=== PATIENT | male | born 1985 | race Two or more races ===

== ENCOUNTER 2017-03-20 18:18 | Emergency (ER) | payer MEDICAID ==
[2017-03-20 18:36] VITALS: TEMP 99.1; O2SAT 96
--- NOTE | 2017-03-20 18:42 | EDPHY ---
H & P Time Seen by Provider: 03/20/17 18:37 HPI/ROS: CHIEF COMPLAINT: Right testicular pain and swelling HISTORY OF PRESENT ILLNESS: Patient is a 32-year-old man with a history of narcotic abuse who comes to the emergency department complaining of right testicular pain and swelling. He states that it is been hurting for about a month but it began swelling 2 days ago. No discharge. No fever. No erythema. It is tender to palpation. No dysuria. No difficulty defecating. No trauma. No hernias. No history of surgeries. He denies risk for STD as does his . REVIEW OF SYSTEMS: Constitutional: denies: chills, fever, recent illness, recent injury EENTM: denies: blurred vision, double vision, nose congestion Respiratory: denies: cough, shortness of breath Cardiac: denies: chest pain, irregular heart rate, lightheadedness, palpitations Gastrointestinal/Abdominal: denies: abdominal pain, diarrhea, nausea, vomiting, blood streaked stools Genitourinary: See HPI Musculoskeletal: denies: joint pain, muscle pain Skin: denies: lesions, rash, jaundice, bruising Neurological: denies: headache, numbness, paresthesia, tingling, dizziness, weakness Hematologic/Lymphatic: denies: blood clots, easy bleeding, easy bruising Immunologic/allergic: denies: HIV/AIDS, transplant EXAM: GENERAL: Well-appearing, well-nourished and in no acute distress. HEAD: Atraumatic, normocephalic. EYES: Pupils equal round and reactive to light, extraocular movements intact, sclera anicteric, conjunctiva are normal. ENT: TMs normal, nares patent, oropharynx clear without exudates. Moist mucous membranes. NECK: Normal range of motion, supple without lymphadenopathy or JVD. LUNGS: Breath sounds clear to auscultation bilaterally and equal. No wheezes rales or rhonchi. HEART: Regular rate and rhythm without murmurs, rubs or gallops. ABDOMEN: Soft, nontender, normoactive bowel sounds. No guarding, no rebound. No masses appreciated. : Patient has right epididymis feels as though there is a cyst. It is tender. The right testicle is also tender. No erythema. No discharge. Negative cremasteric reflex on either side. BACK: No CVA tenderness, no spinal tenderness, step-offs or deformities EXTREMITIES: Normal range of motion, no pitting or edema. No clubbing or cyanosis. NEUROLOGICAL: Cranial nerves II through XII grossly intact. Normal speech, normal gait. 5/5 strength, normal movement in all extremities, normal sensation PSYCH: Normal mood, normal affect. SKIN: Warm, dry, normal turgor, no visible rashes or lesions. Source: Patient Exam Limitations: No limitations - Personal History Current Tetanus Diphtheria and Acellular Pertussis (TDAP): Yes - Medical/Surgical History Hx Asthma: No Hx Chronic Respiratory Disease: No Hx Diabetes: No Hx Cardiac Disease: No Hx Renal Disease: No Hx Cirrhosis: No Hx Alcoholism: No Hx HIV/AIDS: No Hx Splenectomy or Spleen Trauma: No Other PMH: uses 2-3 grams of heroin a day - Family History Significant Family History: No pertinent family hx - Social History Smoking Status: Current some day smoker Alcohol Use: Occasionally Drug Use: Heroin Constitutional: Initial Vital Signs Temperature (C) 37.3 C 03/20/17 18:28 Heart Rate 120 H 03/20/17 18:28 Respiratory Rate 18 03/20/17 18:28 Blood Pressure 136/102 H 03/20/17 18:28 O2 Sat (%) 96 03/20/17 18:28 O2 Delivery Mode Room Air Allergies/Adverse Reactions: Penicillins Allergy (Intermediate, Verified 03/20/17 18:31) Home Medications: Medication Instructions Recorded NO HOME MEDICATIONS 09/03/10 levOFLOXACIN [levAQUIN (*)] 500 mg PO BID #20 tab 03/20/17 Medical Decision Making - Diagnostics Imaging Results: Imaging Impressions Testicular Ultrasound 03/20/17 18:34 Impression: 1. Right epididymitis and orchitis. 2. No testicular torsion. 3. Bilateral testicular microlithiasis without testicular masses. 4. Small right hydrocele. Findings and recommendations discussed with Emergency Department physician, GAYE RIOS at 19:10 hour, 03/20/2017. Final report concurs with initial preliminary interpretation. ED Course/Re-evaluation: 7:10 p.m. we discussed the ultrasound results. I will start the patient on Levaquin. He and his both adamantly denies any risk for STD. We discussed expected course and follow-up and indications for returning. He understands and declines any further workup or testing at this time. Differential Diagnosis: Partial list of the Differential diagnosis considered include but were not limited to; epididymitis, epididymal cyst, orchitis and although unlikely based on the history and physical exam, I also considered torsion, hernia. I discussed these differential diagnoses and the plan with the patient as well as the usual and expected course. The patient understands that the diagnosis is provisional and that in medicine we are not always correct and that further workup is often warranted. Usual and customary warnings were given. All of the patient's questions were answered. The patient was instructed to return to the emergency department should the symptoms at all worsen or return, otherwise to followup with the physician as we discussed. - Data Points Medications Given: Discontinued Medications Levofloxacin (Levaquin) 750 mg PO EDNOW ONE PRN Reason: Protocol Stop: 03/20/17 19:12 Last Admin: 03/20/17 19:33 Dose: 750 mg Departure - Departure Disposition: Home, Routine, Self-Care Clinical Impression: Epididymitis, right, Epididymal cyst, Orchitis of right testicle Condition: Fair Instructions: Epididymitis (ED) Referrals: NATE CANALES,. [Primary Care Provider] - As per Instructions Prescriptions: levOFLOXACIN [levAQUIN (*)] 500 mg PO BID #20 tab
[2017-03-20 19:36] VITALS: BP 123/82; PULSE 95; RESP 16
== END 2017-03-20 19:36 | disposition home or self-care (01) ==
LOC: CED 18:18
DX: N50.3 Cyst of epididymis (principal); N45.1 Epididymitis; N45.2 Orchitis; F17.200 Nicotine dependence, unspecified, uncomplicated
CPT/HCPCS: 76870-PO

== ENCOUNTER 2017-08-09 19:27 | Emergency (ER) | payer MEDICAID ==
--- NOTE | 2017-08-09 19:32 | EDPHY ---
H & P Time Seen by Provider: 08/09/17 19:32 HPI/ROS: HPI CHIEF COMPLAINT: Rash, pruritus HISTORY OF PRESENT ILLNESS: Patient otherwise healthy 32-year-old male, presents emergency room with a erythematous urticaria type rash mainly around his chest and on the left flank. Patient reports that he has been taking amoxicillin for recent dental infection. He has been on for week. He stops yesterday as he developed a rash. The rash went away yesterday. However reoccurred around 4 o'clock today. It is itchy. Decided come the emergency room for further evaluation. He denies any trouble breathing. Denies trouble swallowing. Denies chest pain or shortness of breath. Denies GI upset. The rash is mainly erythematous and some raised lesion consistent with urticaria down the left flank and chest. No stridor. No trouble breathing. Started 3 hr ago. Has not really progressed. Patient cannot think of any new exposure except antibiotic that he has been on for week. He denies new detergents or soaps, denies new work environment. Denies other new medications Past Medical History: Multiple dental caries, multiple dental infections Past Surgical History: Denies recent surgery. Social History: Denies daily use drugs alcohol tobacco. Family History: Noncontributory ROS REVIEW OF SYSTEMS: A comprehensive 10 point review of systems is otherwise negative aside from elements mentioned in the history of present illness. 3 days. Exam Constitutional appears well nontoxic no acute distress, triage nursing summary reviewed, vital signs reviewed, awake/alert. Eyes normal conjunctivae and sclera, EOMI, PERRLA. HENT normal inspection, atraumatic, moist mucus membranes, no epistaxis, neck supple/ no meningismus, no raccoon eyes. Respiratory no stridor. No airway involvement. clear to auscultation bilaterally, normal breath sounds, no respiratory distress, no wheezing. Cardiovascular rate normal, regular rhythm, no murmur, no edema, distal pulses normal. Gastrointestinal soft, non-tender, no rebound, no guarding, normal bowel sounds, no distension, no pulsatile mass. Genitourinary no CVA tenderness. Musculoskeletal no midline vertebral tenderness, full range of motion, no calf swelling, no tenderness of extremities, no meningismus, good pulses, neurovascularly intact. Skin urticaria present and erythema across the chest and left flank. Spares extremities. Neurologic awake, alert and oriented x 3, AAOx3, moves all 4 extremities equally, motor intact, sensory intact, CN II-XII intact, normal cerebellar, normal vision, normal speech. Psychiatric normal mood/affect. Heme/Lymph/Immune no lymphadenopathy. Differential Diagnosis: Includes but is not limited to in a particular order allergic reaction, urticaria, anaphylaxis, anaphylactic shock Medical Decision Making: Here in emergency room this patient appears very well no respiratory GI symptoms. Has urticaria in his chest and left flank. Patient declined IV here. Plan for this patient will be oral prednisone, oral Pepcid, oral Benadryl on close observation re-evaluation Re-evaluation: 2030: Patient re-evaluate at this time. He does have some erythema possible early urticaria down his arms now. However no further progression of his symptoms. No airway involvement. The previous urticaria seems to be developed stable. Given that he has it on his arms now will proceed with an IV establishment, IV Benadryl, IV Solu-Medrol and IV Pepcid. At this time I do not feel that he needs epinephrine. This progression gets worse will give a IM epinephrine. Monitor closely here in emergency room in observation. 2228: Patient re-evaluated resting comfortably. He is requesting discharge. He is eager to be discharged. He has urticaria and rash is completely resolved. He has no further symptoms. There is no rash on exam after medications. He has no respiratory symptoms. We discussed return precautions. He has been here observe the emergency room for over 3 hr. He has done very well. Hemodynamically stable with no progression of his allergic reaction. Discussed return precautions with him. He understands return emergency room if develops any worsening signs or symptoms of allergic reaction trouble breathing , trouble swallowing, vomiting worsening rash. Prescription for prednisone, Pepcid, Benadryl provided for the next 3 days. Source: Patient, Family - Medical/Surgical History Hx Asthma: No Hx Chronic Respiratory Disease: No Hx Diabetes: No Hx Cardiac Disease: No Hx Renal Disease: No Hx Cirrhosis: No Hx Alcoholism: No Hx HIV/AIDS: No Hx Splenectomy or Spleen Trauma: No Other PMH: uses 2-3 grams of heroin a day - Social History Smoking Status: Current some day smoker Constitutional: Initial Vital Signs Temperature (C) 37.2 C 08/09/17 19:39 Heart Rate 70 08/09/17 19:39 Respiratory Rate 16 08/09/17 19:39 Blood Pressure 127/104 H 08/09/17 19:39 O2 Sat (%) 97 08/09/17 19:39 O2 Delivery Mode Room Air Allergies/Adverse Reactions: Penicillins Allergy (Intermediate, Verified 08/09/17 19:38) Home Medications: Medication Instructions Recorded Famotidine [Pepcid 20 MG (*)] 20 mg PO BID #6 tab 08/09/17 diphenhydrAMINE [Benadryl 25 MG 25 mg PO BID #6 tab 08/09/17 (*)] predniSONE 60 mg PO DAILY #9 tab 08/09/17 Medical Decision Making - Data Points Medications Given: Discontinued Medications Diphenhydramine HCl (Benadryl) 50 mg PO EDNOW ONE Stop: 08/09/17 19:36 Last Admin: 08/09/17 19:48 Dose: 50 mg Diphenhydramine HCl (Benadryl Injection) 25 mg IVP EDNOW ONE Stop: 08/09/17 20:31 Last Admin: 08/09/17 20:45 Dose: 25 mg Famotidine (Pepcid) 20 mg PO EDNOW ONE Stop: 08/09/17 19:37 Last Admin: 08/09/17 19:48 Dose: 20 mg Famotidine (Pepcid) 20 mg IVP EDNOW ONE Stop: 08/09/17 20:31 Last Admin: 08/09/17 20:45 Dose: 20 mg Sodium Chloride (Ns) 1,000 mls @ 0 mls/hr IV ONCE ONE PRN Reason: Wide Open Stop: 08/09/17 20:31 Last Admin: 08/09/17 20:45 Dose: 1,000 mls Methylprednisolone Sodium Succinate (Solu-Medrol) 125 mg IVP EDNOW ONE Stop: 08/09/17 20:31 Last Admin: 08/09/17 20:45 Dose: 125 mg Prednisone (Prednisone) 60 mg PO EDNOW ONE Stop: 08/09/17 19:36 Last Admin: 08/09/17 19:48 Dose: 60 mg Departure - Departure Disposition: Home, Routine, Self-Care Clinical Impression: Allergic reaction Qualifiers: Encounter type: initial encounter Qualified Code(s): T78.40XA - Allergy, unspecified, initial encounter Condition: Good Instructions: Urticaria (ED), Anaphylaxis (ED), Allergies (ED) Additional Instructions: 1. Take prednisone, Benadryl, Pepcid for the next 3 days. 2. Return emergency room if you have worsening signs of allergic reaction. Referrals: NONE *PRIMARY CARE P,. [Primary Care Provider] - As per Instructions Prescriptions: diphenhydrAMINE [Benadryl 25 MG (*)] 25 mg PO BID #6 tab Famotidine [Pepcid 20 MG (*)] 20 mg PO BID #6 tab predniSONE 60 mg PO DAILY #9 tab
[2017-08-09] MEDS ORDERED: predniSONE 20 MG TAB PO ONE (19:35)
[2017-08-09] MEDS ORDERED: diphenhydrAMINE 25 MG CAP PO ONE (19:35)
[2017-08-09] MEDS ORDERED: FAMOTIDINE 20 MG TAB PO ONE (19:36)
[2017-08-09] MEDS ORDERED: FAMOTIDINE 20 MG/2 ML SDV IVP ONE (20:30)
[2017-08-09] MEDS ORDERED: methylPREDNISolone SOD SUCC 125 MG/2 ML VIAL IVP ONE (20:30)
[2017-08-09] MEDS ORDERED: NS 1,000 ML IV ONE (20:30)
[2017-08-09 22:07] VITALS: BP 111/75
== END 2017-08-09 22:31 | disposition home or self-care (01) ==
LOC: CED 19:27
DX: R21 Rash and other nonspecific skin eruption (principal); T36.0X5A Adverse effect of penicillins, initial encounter; F17.200 Nicotine dependence, unspecified, uncomplicated
CPT/HCPCS: 96374; J1200; J2930; J7512

== ENCOUNTER 2018-07-13 18:25 | Emergency (ER) | payer MEDICAID ==
[2018-07-13] MEDS ORDERED: ACETAMINOPHEN 500 MG TAB PO ONE (18:41)
--- NOTE | 2018-07-13 18:49 | EDPHY ---
H & P Stated Complaint: cough, body aches, feverish since last night Time Seen by Provider: 07/13/18 18:45 HPI/ROS: CHIEF COMPLAINT: Sore throat, runny nose, dry cough, body aches HISTORY OF PRESENT ILLNESS: The patient is a 33-year-old man who comes to the emergency department flu-like symptoms. They began last night. He states that several people at work have been calling in sick recently with similar symptoms. No history of significant cardiac or pulmonary disease. He did not receive the flu vaccine this year. Severity: Moderate Modifying factors: Moderate improvement with ibuprofen at home REVIEW OF SYSTEMS: Constitutional: See HPI EENTM: See HPI Respiratory: See HPI, notice of breath Cardiac: denies: chest pain, irregular heart rate, lightheadedness, palpitations Gastrointestinal/Abdominal: denies: abdominal pain, diarrhea, nausea, vomiting, blood streaked stools Genitourinary: denies: dysuria, frequency, hematuria, pain Musculoskeletal: denies: joint pain, muscle pain Skin: denies: lesions, rash, jaundice, bruising Neurological: denies: headache, numbness, paresthesia, tingling, dizziness, weakness Hematologic/Lymphatic: denies: blood clots, easy bleeding, easy bruising Immunologic/allergic: denies: HIV/AIDS, transplant 10 systems reviewed and negative except as noted EXAM: GENERAL: Well-appearing, well-nourished and in no acute distress. HEAD: Atraumatic, normocephalic. EYES: Pupils equal round and reactive to light, extraocular movements intact, sclera anicteric, conjunctiva are normal. ENT: TMs normal, nares patent, oropharynx erythematous without exudates. Moist mucous membranes. NECK: Normal range of motion, supple without lymphadenopathy or JVD. LUNGS: Breath sounds clear to auscultation bilaterally and equal. No wheezes rales or rhonchi. HEART: Regular rate and rhythm without murmurs, rubs or gallops. ABDOMEN: Soft, nontender, normoactive bowel sounds. No guarding, no rebound. No masses appreciated. BACK: No CVA tenderness, no spinal tenderness, step-offs or deformities EXTREMITIES: Normal range of motion, no pitting or edema. No clubbing or cyanosis. NEUROLOGICAL: Cranial nerves II through XII grossly intact. Normal speech, normal gait. 5/5 strength, normal movement in all extremities, normal sensation , normal reflexes PSYCH: Normal mood, normal affect. SKIN: Warm, dry, normal turgor, no visible rashes or lesions. Source: Patient Exam Limitations: No limitations - Personal History Current Tetanus/Diphtheria Vaccine: Yes - Medical/Surgical History Hx Asthma: No Hx Chronic Respiratory Disease: No Hx Diabetes: No Hx Cardiac Disease: No Hx Renal Disease: No Hx Cirrhosis: No Hx Alcoholism: No Hx HIV/AIDS: No Hx Splenectomy or Spleen Trauma: No Other PMH: methadone for heroine use - Family History Significant Family History: No pertinent family hx - Social History Smoking Status: Heavy smoker Alcohol Use: None Drug Use: None Constitutional: Initial Vital Signs Temperature (C) 37.5 C 07/13/18 18:33 Heart Rate 96 07/13/18 18:33 Respiratory Rate 18 07/13/18 18:33 Blood Pressure 132/75 H 07/13/18 18:33 O2 Sat (%) 97 07/13/18 18:33 O2 Delivery Mode Room Air Allergies/Adverse Reactions: Penicillins Allergy (Intermediate, Verified 07/13/18 18:32) Home Medications: Medication Instructions Recorded Methadone HCl 07/13/18 Oseltamivir Phosphate [Tamiflu 75 75 mg PO BID #10 cap 07/13/18 mg (*)] Medical Decision Making ED Course/Re-evaluation: The patient has influenza A. His symptoms began less than 48 hr ago. Will start on Tamiflu. He and his are happy with this plan. They also asking for note for work. His vital signs are stable knee feels comfortable going home. Differential Diagnosis: Partial list of the Differential diagnosis considered include but were not limited to; influenza, viral syndrome, strep throat and although unlikely based on the history and physical exam, I also considered pneumonia, sepsis. - Data Points Medications Given: Discontinued Medications Acetaminophen (Tylenol) 1,000 mg PO EDNOW ONE Stop: 07/13/18 18:42 Last Admin: 07/13/18 18:43 Dose: 1,000 mg Oseltamivir Phosphate (Tamiflu) 75 mg PO EDNOW ONE Stop: 07/13/18 19:16 Last Admin: 07/13/18 19:24 Dose: 75 mg Point of Care Test Results: Influenza PCR Flu Nasal Swab Collection Date 07/13/18 Flu Nasal Swab Collection Time 18:30 Influenza A Result Detected Influenza B Result Not Detected Departure - Departure Disposition: Home, Routine, Self-Care Clinical Impression: Influenza A Condition: Fair Instructions: Influenza (ED) Referrals: ALLY SULLIVAN [Other] - 2-3 days, if not improved Stand Alone Forms: Work Excuse Prescriptions: Oseltamivir Phosphate [Tamiflu 75 mg (*)] 75 mg PO BID #10 cap
[2018-07-13] MEDS ORDERED: OSELTAMIVIR PHOSPHATE 75 MG CAP PO ONE (19:15)
[2018-07-13 19:49] VITALS: BP 111/72
== END 2018-07-13 19:31 | disposition home or self-care (01) ==
LOC: CED 18:25
DX: J10.1 Influenza due to other identified influenza virus with other respiratory manifestations (principal); F17.200 Nicotine dependence, unspecified, uncomplicated
CPT/HCPCS: 87400-QW-ER; 99283-ER